=== PATIENT | female | born 1980 | race African-American/Black ===

== ENCOUNTER 2020-02-28 13:51 | Inpatient (IN) | payer OTHER ==
[~2020-02-28] VITALS: Ht 167.6 cm; Wt 70.2 kg
[2020-02-28 15:14] LABS: Basophils # (auto) 0 10 ^3/uL (0-0.2); Basophils % (auto) 0.2 % (0.0-2.0); Eosinophils # (auto) 0 10 ^3/uL (0-0.8); Hematocrit 45.3 % (36.0-46.0); Hemoglobin 14.5 g/dL (12.2-16.2); Lymphocytes # (auto) 0.8 10 ^3/uL (0.4-5.4); Mean Corpuscular Hemoglobin 29.6 pg (28.0-32.0); Mean Corpuscular Hgb Conc. 31.9 g/dL (32.0-36.0); Mean Corpuscular Volume 92.6 fL (80.0-100.0); Monocytes # (auto) 0.1 10 ^3/uL (0-1.3); Monocytes % (auto) 1.3 % (0.0-12.0); Neutrophils % (auto) 90.5 % (37.0-80.0); Platelet Count (auto) 337 10^3/uL (140-450); Red Cell Distribution Width 14.5 % (11.8-14.3); White Blood Cell 9.9 10^3/uL (4.4-10.8)
[2020-02-28 15:36] LABS: Calcium 9.8 mg/dL (8.5-10.1); Potassium 3.8 mmol/L (3.5-5.1)
[2020-02-28 15:39] LABS: BUN/Creatinine Ratio 23.5; Bilirubin, Total 0.9 mg/dL (0.2-1.0); Total Protein 8.7 g/dL (6.4-8.2)
[2020-02-28] MEDS ORDERED: ONDANSETRON HCL 4 MG/2 ML VIAL IV ONE (18:45)
[2020-02-28] MEDS ORDERED: metroNIDAZOLE 500MG/100ML 100 ML IV ONE (18:45)
[2020-02-28] MEDS: SODIUM CHLORIDE 0.9% 1,000 ML IV SCH (20:09)
[2020-02-28] MEDS ORDERED: ONDANSETRON HCL 4 MG/2 ML VIAL IV PRN (20:15)
[2020-02-28] MEDS ORDERED: DOCUSATE SOD 100 MG CAP PO PRN (20:15)
[2020-02-28] MEDS ORDERED: ACETAMINOPHEN 325 MG TAB PO PRN (20:15)
[2020-02-28] MEDS ORDERED: HYDROcodone-ACET 5/325MG TAB PO PRN (20:15)
[2020-02-28] MEDS ORDERED: LORazepam 0.5 MG TAB PO PRN (20:15)
[2020-02-28] MEDS ORDERED: MORPHINE SULF INJ 2 MG/ML SYRINGE 1ML IV ONE (21:15)
[2020-02-28] MEDS ORDERED: PROMETHAZINE HCL 25 MG/ML 1ML IV ONE (21:15)
[2020-02-29] VITALS (9 sets, daily range): BP systolic 120–137; BP diastolic 77–93
[2020-02-29] MEDS: METOCLOPRAMIDE HCL 5MG/ml INJ 2ml VIAL IV PRN ×4 (01:42→22:12)
[2020-02-29] MEDS: MORPHINE SULF INJ 2 MG/ML SYRINGE 1ML IV PRN ×3 (01:42→22:21)
[2020-02-29] MEDS ORDERED: OME40GT PO (05:07)
[2020-02-29] MEDS ORDERED: SUCR1SUS5 PO (05:08)
[2020-02-29] MEDS: SODIUM CHLORIDE 0.9% 1,000 ML IV SCH ×3 (06:09→22:21)
[2020-02-29 07:28] LABS: Basophils # (auto) 0 10 ^3/uL (0-0.2); Basophils % (auto) 0.3 % (0.0-2.0); Eosinophils # (auto) 0 10 ^3/uL (0-0.8); Hemoglobin 11.8 g/dL (12.2-16.2); Lymphocytes # (auto) 2.2 10 ^3/uL (0.4-5.4); Lymphocytes % (auto) 16.7 % (10.0-50.0); Mean Corpuscular Hgb Conc. 32.9 g/dL (32.0-36.0); Mean Corpuscular Volume 91.3 fL (80.0-100.0); Monocytes # (auto) 0.7 10 ^3/uL (0-1.3); Monocytes % (auto) 5.4 % (0.0-12.0); Neutrophils # (auto) 10.4 10 ^3/uL (1.6-8.6); Neutrophils % (auto) 77.6 % (37.0-80.0); Nucleated Red Blood Cells % 0.1 %; Platelet Count (auto) 327 10^3/uL (140-450); Red Blood Cells 3.94 10^6/uL (4.0-5.20); Red Cell Distribution Width 14.1 % (11.8-14.3); White Blood Cell 13.4 10^3/uL (4.4-10.8)
--- NOTE | 2020-02-29 07:30 | NUR ---
Opening Shift Note Assumed care of patient, awake and alert. Patient c/o epigastric pain and nausea due to eating small bites of breakfast. Patient given medications for pain and nausea. Will inform doctor of patient not tolerating diet. Instructed on POC and to call for assist PRN, will continue to monitor for changes Q1hr and PRN. Bed is locked and in lowest position. Call light within reach.
[2020-02-29 07:47] LABS: BUN/Creatinine Ratio 31.7; Calcium 8.8 mg/dL (8.5-10.1); Potassium 3.2 mmol/L (3.5-5.1)
[2020-02-29] MEDS ORDERED: METOCLOPRAMIDE HCL 5MG/ml INJ 2ml VIAL ONE (07:51)
[2020-02-29] MEDS ORDERED: PANTOPRAZOLE 40 MG/10 ML VIAL INJ IV ONE (12:00)
[2020-02-29] MEDS ORDERED: POTASSIUM CHLORIDE 40 MEQ, LIDOCAINE 1% (LOCAL ANESTH.) 4 ML in SODIUM CHL 0.9% 100 ML IV ONE (12:00)
[2020-02-29] MEDS ORDERED: SUCRALFATE 1 GM/10 ML ORAL SUSP PO ONE (12:00)
[2020-02-29 12:11] LABS: Amylase 69 U/L (25-115); Lipase 63 U/L (73-393)
[2020-02-29] MEDS: SUCRALFATE 1 GM/10 ML ORAL SUSP PO SCH ×2 (18:25→22:12)
--- NOTE | 2020-02-29 19:20 | NUR ---
Opening Shift Note Report given by FRAN Conde, assumed care of patient. Pt [id number]. Patient c/o epigastric discomfort and is requesting antinausea medication, pt was told by this nurse that as soon as her antinausea medication is due that it will be administered, pt verbalizes understanding. Instructed on POC and to call for assist PRN, will continue to monitor for changes Q1hr and PRN. Bed is locked and in lowest position with rails up x2. Call light within reach.
[2020-02-29] MEDS: PANTOPRAZOLE 40 MG/10 ML VIAL INJ IV SCH (22:12)
--- NOTE | 2020-03-01 00:10 | NUR ---
Pt had complaints of insomnia, sllep aid medication administered. will reassess effectiveness of medication in one hour.
--- NOTE | 2020-03-01 01:00 | NUR ---
Pt sleeping well. Maintained a safe and quiet environment. Bed in lowest and locked position with rails up x2. call light within reach of pt.
[2020-03-01] MEDS: TEMAZEPAM 15 MG CAP PO PRN ×2 (01:17→22:45)
--- NOTE | 2020-03-01 04:25 | NUR ---
Pt sleeping well. Maintained a safe and quiet environment. Bed in lowest and locked position with rails up x2. call light within reach of pt.
[2020-03-01 05:42] VITALS: BP 121/76
[2020-03-01] MEDS: SUCRALFATE 1 GM/10 ML ORAL SUSP PO SCH ×4 (06:52→22:44)
--- NOTE | 2020-03-01 08:25 | NUR ---
Patient eating breakfast. No distress noted and no complaint of pain. Patient stable.
[2020-03-01 09:21] VITALS: BP 115/70
[2020-03-01] MEDS: PANTOPRAZOLE 40 MG/10 ML VIAL INJ IV SCH ×2 (10:00→22:44)
--- NOTE | 2020-03-01 10:00 | NUR ---
Scheduled IVP medication given per order. Patient resting comfortably in bed with no complaint of any pain. Patient stable.
--- NOTE | 2020-03-01 11:55 | NUR ---
Patient stable with Dr. Plaza at bedside.
[2020-03-01] MEDS: SODIUM CHLORIDE 0.9% 1,000 ML IV SCH (12:09)
[2020-03-01 13:00] VITALS: BP 134/75
[2020-03-01 13:19] LABS: Basophils # (auto) 0.1 10 ^3/uL (0-0.2); Basophils % (auto) 0.8 % (0.0-2.0); Eosinophils # (auto) 0.1 10 ^3/uL (0-0.8); Eosinophils % (auto) 1.4 % (0.0-7.0); Hematocrit 41.8 % (36.0-46.0); Hemoglobin 13.8 g/dL (12.2-16.2); Lymphocytes # (auto) 2.4 10 ^3/uL (0.4-5.4); Lymphocytes % (auto) 34.2 % (10.0-50.0); Mean Corpuscular Hemoglobin 30.4 pg (28.0-32.0); Mean Corpuscular Hgb Conc. 33.1 g/dL (32.0-36.0); Mean Corpuscular Volume 91.9 fL (80.0-100.0); Monocytes # (auto) 0.3 10 ^3/uL (0-1.3); Monocytes % (auto) 4.4 % (0.0-12.0); Neutrophils # (auto) 4.2 10 ^3/uL (1.6-8.6); Neutrophils % (auto) 59.2 % (37.0-80.0); Nucleated Red Blood Cells % 0.2 %; Platelet Count (auto) 285 10^3/uL (140-450); Red Blood Cells 4.55 10^6/uL (4.0-5.20)
[2020-03-01 13:38] LABS: Albumin 3.9 g/dL (3.4-5.0); Calcium 8.7 mg/dL (8.5-10.1); Potassium 3.3 mmol/L (3.5-5.1)
[2020-03-01 13:41] LABS: BUN/Creatinine Ratio 15.6; Total Protein 7.2 g/dL (6.4-8.2)
--- NOTE | 2020-03-01 14:00 | NUR ---
Patient resting quietly in bed with no distress noted. Stable.
--- NOTE | 2020-03-01 16:40 | NUR ---
Patient resting comfortably in bed with no complaint of pain. Patient stable.
--- NOTE | 2020-03-01 17:27 | NUR ---
Scheduled medication given per order. Patient sitting in bed, talking on cell phone. Patient stable.
--- NOTE | 2020-03-01 20:00 | NUR ---
RECEIVED PATIENT FROM DAY SHIFT RN. PATIENT RESTING IN BED. NO S/S OF DISTRESS NOTED. C/O STOMACH CRAMPING AND NAUSEA AFTER DINNER. PATIENT REFUSED TO BE DISCHARGED. POC INSTRUCTED AND ENCOURAGED PATIENT TO CALL FOR DOCUMENT SCANNER IF NEEDED. BED IN LOWEST POSITION WITH SIDE RAILS UP X 2. CALL BALTAZAR WITHIN REACH. CONTINUE TO MONITOR FOR CHANGES Q1H AND PRN.
--- NOTE | 2020-03-01 20:32 | NUR ---
CHARGE NURSE ALIRIO AWARE OF PATIENT REFUSING TO BE D/C, INSTRUCTED TO CALL HOSPITALIST AT 2200. CONTINUE TO MONITOR.
[2020-03-01] MEDS: METOCLOPRAMIDE HCL 5MG/ml INJ 2ml VIAL IV PRN (20:52)
--- NOTE | 2020-03-01 20:53 | NUR ---
MEDICATED PATIENT FOR STOMACH CRAMPING AND NAUSEA ORDERED. CONTINUE TO MONITOR.
[2020-03-01 22:02] VITALS: BP 142/93
--- NOTE | 2020-03-01 22:05 | NUR ---
HOSPITALIST Called/paged VARSHA MCMANUS called re:PATIENT DIDN'T TOLERATE DINNER WELL, AND WON'T BE DISCHARGED TODAY. Waiting for call back. Continue care.
--- NOTE | 2020-03-01 22:18 | NUR ---
HOSPITALIST returned call VARSHA MCMANUS returned call, updated on patient status and reason for call, orders received. HOLD D/C TONIGHT. Continue care.
[2020-03-02] MEDS: SODIUM CHLORIDE 0.9% 1,000 ML IV SCH ×2 (00:49→08:09)
--- NOTE | 2020-03-02 02:16 | NUR ---
PATIENT SLEEPING. NO S/S OF DISTRESS NOTED. CONTINUE TO MONITOR.
[2020-03-02 05:00] VITALS: BP 125/79
[2020-03-02] MEDS: SUCRALFATE 1 GM/10 ML ORAL SUSP PO SCH ×2 (06:32→12:28)
[2020-03-02 08:30] VITALS: BP 118/82
--- NOTE | 2020-03-02 08:35 | NUR ---
Patient sitting in bed with breakfast on tray table. No complaint of pain or discomfort. Patient stable at this time.
[2020-03-02 09:49] VITALS: BP 118/82
--- NOTE | 2020-03-02 10:23 | NUR ---
Received call from Dr. Omer. Per doctor, john to discharge from GI standpoint.
[2020-03-02] MEDS: PANTOPRAZOLE 40 MG/10 ML VIAL INJ IV SCH (10:27)
--- NOTE | 2020-03-02 10:27 | NUR ---
Scheduled IVP medication given per order. Patient resting quietly in bed with no complaint of pain. Patient stable.
--- NOTE | 2020-03-02 12:29 | NUR ---
Scheduled medication given per order. Patient requested that carafate be given closer to delivery of lunch tray. Patient stable at this time.
[2020-03-02 12:58] VITALS: BP 123/73
[2020-03-02] MEDS ORDERED: POTASSIUM EFFERVESENT TAB 25 MEQ PO ONE (14:30)
[2020-03-02 16:10] VITALS: BP 123/73
--- NOTE | 2020-03-02 16:27 | NUR ---
Ordered med given. Patient resting comfortably in bed with no distress noted. Patient stable.
--- NOTE | 2020-03-02 17:00 | NUR ---
Discharge instructions Both written and verbal discharge instructions given to patient. Patient verbalized understanding of instructions. Prescription for pantoprazole and sucralfate given as well. All belongings with patient. Patient stable.
--- NOTE | 2020-03-02 17:20 | NUR ---
Discharge Peripheral IV removed intact with no active bleeding. Patient tolerated well. Patient discharge to home in stable condition via wheelchair.
== END 2020-03-02 17:26 | disposition home or self-care (01) | DRG 241 ==
LOC: ER 13:51 → OVERFLOW 13:52 → WEST WING 23:09
PROVIDERS: ADMIT Hospitalist; ATTEND Internal Medicine Nephrology
DX: K29.70 Gastritis, unspecified, without bleeding (principal); D63.8 Anemia in other chronic diseases classified elsewhere; R11.2 Nausea with vomiting, unspecified; E86.0 Dehydration; N18.9 Chronic kidney disease, unspecified; E87.6 Hypokalemia; K21.9 Gastro-esophageal reflux disease without esophagitis; E87.1 Hypo-osmolality and hyponatremia
CPT/HCPCS: 36415; 74176; 76705; 80048; 80053; 82150; 83690; 84443; 84702; 85025; C9113; G0378; J2001; J2405; J3490